=== PATIENT | male | born 1965 | race African-American/Black ===

== ENCOUNTER 2021-01-11 13:02 | Emergency (ER) | payer MEDICAID ==
[~2021-01-11] VITALS: Ht 177.8 cm; Wt 83.9 kg
--- NOTE | 2021-01-11 13:30 | NUR ---
Patient DEMETRIO SALAMANCAIra, transferred to bed 5. [place] [employer] at bedside.
[2021-01-11 13:49] VITALS: BP 131/95
--- NOTE | 2021-01-11 13:49 | NUR ---
ALEX Nicholson is evaluating the patient at bedside.
--- NOTE | 2021-01-11 14:00 | NUR ---
geotechnical operating engineer at bedside.
[2021-01-11] MEDS: ASPIRIN 81 MG TAB.CHEW PO ONE (14:17)
[2021-01-11] MEDS: KETOROLAC 30 MG/ML VIAL IM ONE (14:18)
--- NOTE | 2021-01-11 14:45 | NUR ---
55YO M BIBA IN [employer] CUSTODY C/O CHEST PAIN, VOMITING, AND ABD PAIN AFTER BEING PLACED IN CUSTODY BY PT. IN ED, AOX4. CLEAR BREATH SOUNDS. NORMAL RATE REGULAR RHYTHM. PT POSITIONED COMFORTABLY IN BED WITH 2 SIDERAILS UP. ERMD MADE AWAER OF PT STATUS. MEDHX: DM, ASTHMA NKA
[2021-01-11 15:20] VITALS: BP 131/95
--- NOTE | 2021-01-11 15:21 | NUR ---
Patient discharged with v/s stable. Written and verbal after care instructions given and explained. Patient verbalized understanding. Ambulatory with steady gait. All questions addressed prior to discharge. Advised to follow up with PMD.
== END 2021-01-11 15:20 | disposition home or self-care (01) ==
LOC: MED 13:02
DX: R07.89 Other chest pain (principal); E11.9 Type 2 diabetes mellitus without complications; J45.909 Unspecified asthma, uncomplicated; F17.210 Nicotine dependence, cigarettes, uncomplicated
CPT/HCPCS: 36415; 71045; 84484; 93005; 96372; 99285; J1885